=== PATIENT | male | born 1995 | race Caucasian/White ===

== ENCOUNTER 2023-05-05 09:24 | Emergency (ER) | payer BC, OTHER ==
[~2023-05-05] VITALS: Ht 170.2 cm; Wt 80.9 kg
[~2023-05-05 09:24] MED LIST: NO HOME MEDS; TYLE325T5 PO
[2023-05-05 10:23] LABS: BASO % 0.6 % (0.0-1.0); EOS # 0.4 10^3/uL (0.0-0.5); EOS % 6.9 % (0.0-3.0); HEMATOCRIT 47.7 % (42.0-52.0); HEMOGLOBIN 15.6 g/dl (13.5-17.5); LYMPH % 18.7 % (24.0-44.0); MEAN CORPUSCULAR HEMOGLOBIN 30.7 pg (27.0-33.0); MEAN CORPUSCULAR HGB CONC 32.7 g/dl (32.0-36.5); MEAN CORPUSCULAR VOLUME 93.9 fl (80.0-96.0); MONO # 0.7 10^3/uL (0.0-0.8); NEUTROPHILS # 3.2 10^3/uL (1.5-8.5); NEUTROPHILS % 60.6 % (36.0-66.0); PLATELET COUNT, AUTOMATED 335 10^3/uL (150-450); RED BLOOD COUNT 5.08 10^6/uL (4.30-6.10); WHITE BLOOD COUNT 5.3 10^3/uL (4.0-10.0)
[2023-05-05 10:53] LABS: LIPASE 37 U/L (12-53)
[2023-05-05 10:56] LABS: ALKALINE PHOSPHATASE 86 U/L (46-116); ALT/SGPT 55 U/L (7.0-40); AST/SGOT 28 U/L (<34); BILIRUBIN,DIRECT 0.3 MG/DL (<0.4); BILIRUBIN,TOTAL 0.7 MG/DL (0.3-1.2); BLOOD UREA NITROGEN 9 MG/DL (9-23); CALCIUM LEVEL 9.1 MG/DL (8.5-10.1); CARBON DIOXIDE LEVEL 29 MMOL/L (20-31); CHLORIDE LEVEL 106 MMOL/L (98-107); GLOMERULAR FILTRATION RATE > 60.0 (>60); GLUCOSE, FASTING 92 MG/DL (60-100); POTASSIUM SERUM 4.8 MMOL/L (3.5-5.1); SODIUM LEVEL 138 MMOL/L (136-145); TOTAL PROTEIN 6.4 G/DL (5.7-8.2)
[2023-05-05] MEDS ORDERED: PANTOPRAZOLE 40MG VIAL IV ONE (11:55)
[2023-05-05] MEDS ORDERED: NS 1,000 ML IV ONE (11:55)
[2023-05-05] MEDS ORDERED: ISOVUE-370 76% 100ML VIAL As Ordered ONE (11:57)
[2023-05-05] MEDS ORDERED: PROT1TAB2 PO (13:58)
[2023-05-05] MEDS ORDERED: MIRA3350 PO (14:00)
[2023-05-05 14:12] VITALS: BP 124/85; TEMP 97.4; O2SAT 98
[2023-05-05 15:45] LABS: ALBUMIN 3.8 G/DL (3.2-5.2)
== END 2023-05-05 14:15 | disposition home or self-care (01) ==
LOC: M ED 09:24
DX: N53.12 Painful ejaculation (principal); K21.9 Gastro-esophageal reflux disease without esophagitis; R13.10 Dysphagia, unspecified; K59.00 Constipation, unspecified; F10.10 Alcohol abuse, uncomplicated; Z79.1 Long term (current) use of non-steroidal anti-inflammatories (NSAID); Z79.899 Other long term (current) drug therapy
CPT/HCPCS: 71260; 74177; 80048; 80076; 81001; 83690; 85025; 85652; 86140; 96361; 96374; 99284; C9113; Q9967

== ENCOUNTER 2024-07-22 00:11 | Emergency (ER) | payer OTHER ==
[~2024-07-22] VITALS: Ht 167.6 cm; Wt 79.3 kg
[~2024-07-22 00:11] MED LIST changes: +MIRA3350 PO; +PROT1TAB2 PO
[2024-07-22 00:20] VITALS: BP 150/95; TEMP 97.6; O2SAT 99
== END 2024-07-22 02:17 | disposition left against medical advice (07) ==
LOC: M ED 00:11 → EDBD 00:11 → M ED 02:17
DX: Z53.21 Procedure and treatment not carried out due to patient leaving prior to being seen by health care provider (principal)